=== PATIENT | male | born 1980 | race Caucasian/White ===

== ENCOUNTER → 2016-11-23 | Outpatient (CLI) | payer MEDICARE, OTHER | LOC: RAD 10:11 | DX: M54.2 Cervicalgia (principal); M54.5 Low back pain; M54.6 Pain in thoracic spine; M25.541 Pain in joints of right hand; M25.542 Pain in joints of left hand; M25.531 Pain in right wrist; M25.532 Pain in left wrist | CPT/HCPCS: 72050; 72072; 72110; 73110; 73130 ==